=== PATIENT | male | born 1995 | race Caucasian/White ===

== ENCOUNTER 2020-07-31 12:30 | Outpatient (CLI) | payer OTHER, SELFPAY ==
[2020-07-31 13:38] LABS: Hemoglobin A1C 9.1 % (<5.7)
[2020-07-31 13:57] LABS: Creatinine Urine 63.9 mg/dL
[2020-07-31 14:05] LABS: MALB Creatinine Ratio < 9.4 mg/g (0-30); Microalbumin Urine Random < 6.0 mg/L (0-16.7)
[2020-07-31 15:43] LABS: Alanine Aminotransferase 33 U/L (4-50); Albumin Level 4.8 g/dL (3.5-5.1); Alkaline Phosphatase 50 U/L (38-126); Anion Gap 10 mmol/L (8-16); Aspartate Amino Transferase 33 U/L (17-59); Bilirubin,Total 0.6 mg/dL (0.2-1.3); Blood Urea Nitrogen 19 mg/dL (9-20); Calcium 9.6 mg/dL (8.4-10.2); Carbon Dioxide 29 mmol/L (22-30); Chloride 100 mmol/L (98-107); Cholesterol 186 mg/dL (0-200); Estimated Glomerular Filt Rate > 60; Glucose 113 mg/dL (75-110); HDL Direct 69 mg/dL; Potassium 3.7 mmol/L (3.4-5.0); Sodium 139 mmol/L (137-145); Triglycerides 107 mg/dL (<150)
[2020-07-31 15:48] LABS: LDL Cholesterol Direct 89 mg/dL
== END 2020-07-31 12:31 | disposition home or self-care (01) ==
LOC: ANHLAB 12:32
PROVIDERS: Visit Provider Physician Assistant
DX: E10.65 Type 1 diabetes mellitus with hyperglycemia (principal)
CPT/HCPCS: 36415; 80053; 80061; 82043; 83036; 84443